=== PATIENT | female | born 1955 | race Caucasian/White ===

== ENCOUNTER 2023-03-06 11:12 | Emergency (ER) | payer MEDICARE, MEDICAID ==
[~2023-03-06] VITALS: Ht 170.2 cm; Wt 87.7 kg
[~2023-03-06 11:12] MED LIST: LISI1TAB51 PO
[2023-03-06 11:17] VITALS: TEMP 99.1
--- NOTE | 2023-03-06 12:30 | NUR ---
PT IN ROOM 9, ON MONITOR IN NAD.
[2023-03-06 12:50] VITALS: BP 149/76; PULSE 73; RESP 16; O2SAT 96
== END 2023-03-06 13:00 | disposition home or self-care (01) ==
LOC: ER 11:12
DX: I10 Essential (primary) hypertension (principal); E11.9 Type 2 diabetes mellitus without complications; Z79.899 Other long term (current) drug therapy
CPT/HCPCS: 93005; 99283

== ENCOUNTER 2024-03-12 09:29 | Outpatient (CLI) | payer MEDICARE, MEDICAID | END 2024-03-12 23:59 | disposition home or self-care (01) | LOC: RAD 09:29 | PROVIDERS: ATTEND Family Medicine | DX: I31.39 Other pericardial effusion (noninflammatory) (principal); K80.20 Calculus of gallbladder without cholecystitis without obstruction; R91.8 Other nonspecific abnormal finding of lung field | CPT/HCPCS: 71250 ==

== ENCOUNTER 2024-11-29 09:13 | Inpatient (IN) | payer MEDICARE, MEDICAID ==
[~2024-11-29] VITALS: Ht 167.6 cm; Wt 81.0 kg
--- NOTE | 2024-11-29 09:22 | ELECTROCARDIOGRAPH REPORT ---
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 Steven August Measurements Intervals Leighton Rate: 89 P: 52 MO: 144 QRS: -1 QRSD: 84 T: 32 QT: 357 QTc: 435 Interpretive Statements Sinus rhythm Low voltage, precordial leads Consider anterior infarct Electronically Signed On 12-01-2024 19:15:[address] Steven August Please click the below link to view image of tracing.
[2024-11-29 09:42] LABS: MEAN PLATELET VOLUME 7.7 FL (7.4-10.4); RED CELL DISTRIBUTION WIDTH 12.7 % (11.5-14.5)
--- NOTE | 2024-11-29 09:46 | Physician Documentation ---
History of Present Illness ~ Chief Complaint: Chest Pain Stated Complaint: CP Time Seen by MD: 11:21 Primary Medical Doctor: None HPI 69 year old female h/o htn, gerd p/w chest pain. She was feeding her who is recovering from shoulder surgery developed sudden onset chest pressure, sternal and jaw pain. No sob. Progressively worsened for 20 minutes then began improving. Now chest pain free. No history of similar no prior stress testing. Currently denies any shortness of breath nausea vomiting chest pain or back pain or radiating arm Day of Onset: Nov 29, 2024 Tetanus within 5 Years?: No Allergies: Coded Allergies: midazolam HCl (Verified Adverse Reaction, Intermediate, ebstein fong flare up, 11/29/24) Uncoded Allergies: NUTS (Adverse Reaction, Severe, cpr, 04/09/10) Active Prescriptions See Medication Reconciliation Form. Medication Reconciliation Scheduled Lisinopril (Lisinopril), 1 TAB PO DAILY, (Reported) Discontinued Medications Lisinopril/Hydrochlorothiazide (Lisinopril-Hctz 20-12.5 mg Tab), 1 TABLET PO DAILY, (Reported) Discontinued Reason: patient no longer taking Review of Systems All Other Systems at this time: Reviewed and Negative Constitutional: Denies: fever Respiratory: Denies: cough, orthopnea, shortness of breath Cardiovascular: Reports: chest pain; Denies: diaphoresis, lightheadedness, syncope, edema Gastrointestinal: Denies: abdominal pain Physical Exam Vital Signs: Temperature: 97.3, Source: Oral, Heart Rate: 89, Respiratory Rate: 18, BP: 179/98, Pulse Oximetry: 97, Weight: 81.000 Physical Exam well appearing no distress awake alert oriented lungs ctab cardiac no murmur abd soft nt lower ext no edema. skin pwd Progress Results/Orders Reviewed/noted all lab results: Yes Results/Orders Orders - TYLER TOMLIN MD Chest,Single View (11/29/24 09:20) Monitor (11/29/24 09:20) Saline Lock (11/29/24 09:20) Hs Troponin I W Calculations (11/29/24 12:20) Page Hospitalist (11/29/24 12:57) Fill Out Med Reconciliation (11/29/24 12:57) Completed Orders - TYLER TOMLIN MD Chest,Single View (11/29/24 09:20) Cbc/Diff (11/29/24 09:20) BMP (11/29/24 09:20) PBNP (11/29/24 09:20) Electrocardiogram (11/29/24 09:20) Hs Troponin I W Calculations (11/29/24 09:20) Hs Troponin I W Calculations (11/29/24 11:20) Aspirin 81mg Chew Tablet (Aspirin 81mg C (11/29/24 13:10) Medications Received in ER Medications (Trade) Dose Ordered Sig/Magaly Route PRN Reason Start Time Stop Time Status Last Admin Dose Admin (aspirin 81MG chew tablet) 324 mg ONCE ONCE PO 11/29/24 13:10 11/29/24 13:11 DC 11/29/24 13:21 324 MG Vital Signs 11/29/24 11/29/24 11/29/24 09:21 11:26 13:23 Temp 97.3 Pulse 89 75 98 Resp 18 18 18 B/P (MAP) 179/98 149/70 (96) 173/88 (116) Pulse Ox 97 99 Laboratory Tests Test 11/29/24 09:21 11/29/24 11:29 White Blood Count 9.9 Red Blood Count 4.57 Hemoglobin 13.3 Hematocrit 39.0 Mean Corpuscular Volume 85.4 Mean Corpuscular Hemoglobin 29.0 Mean Corpuscular Hemoglobin Concent 34.0 Red Cell Distribution Width 12.7 Platelet Count 378 Mean Platelet Volume 7.7 Neutrophils (%) (Auto) 66.7 Lymphocytes (%) (Auto) 24.4 Monocytes (%) (Auto) 5.3 Eosinophils (%) (Auto) 2.5 Basophils (%) (Auto) 1.1 H Neutrophils # (Auto) 6.6 Lymphocytes # (Auto) 2.4 Monocytes # (Auto) 0.5 Eosinophils # (Auto) 0.2 Basophils # (Auto) 0.1 CBC Comment Sodium Level 140 Potassium Level 3.8 Chloride Level 104 Carbon Dioxide Level 22.1 L Anion Gap 14 Blood Urea Nitrogen 13 Creatinine 0.57 Estimated GFR/1.73 m2 > 90 BUN/Creatinine Ratio 22.8 H Glucose Level 121 H Calcium Level 9.2 Troponin I High Sensitivity 5 7 Pro-B-Type Natriuretic Peptide 45 Albumin 4.0 Chemistry Comments Troponin I High Sens Percent Delta 40 Troponin I Hi Sens Absolute Change 2 EKG/XRAY/CT/US/VASC/MRI EKG : Additional Comment EKG independently interpreted by myself time 920 indication chest pain NSR rate 89 normal axis normal intervals no st elevation or depression Heart Score: Heart Score Response (Comments) Value History Moderate Suspicious 1 EKG Normal 0 Age >65 2 Risk Factors 1 or 2 risk factors 1 Troponin Normal limit 0 Total 4 Medical Decision Making Additional Comment ACS, pneumothorax, pneumonia, PE Departure Disposition: ADMITTED INPATIENT Admitted to Inpatient Unit: to hospitalist Impression: Primary Impression: Acute chest pain Referrals: NO PRIMARY CARE PROVIDER (PCP) Signature Scribe Signature: na Attestation: ROBERT Castillo NP Nov 29, 2024 09:46 TYLER TOMLIN MD Nov 29, 2024 12:42
[2024-11-29 10:00] LABS: CREATININE 0.57 MG/DL (0.40-0.90); PRO BRAIN NATRIURETIC PEPTIDE 45 PG/ML (0-125); TOTAL CARBON DIOXIDE 22.1 MMOL/L (24-32); eCRCL 90 ML/MIN; eGFR > 90 ML/MIN
--- NOTE | 2024-11-29 10:01 | RADIOLOGY REPORT ---
EXAM: DI CHEST,SINGLE VIEW HISTORY: CP COMPARISON: None TECHNIQUE: PA upright view of the chest was performed. FINDINGS: No pneumothorax, consolidative infiltrates, or pulmonary edema. There is mild central peribronchial t hickening. The heart is not enlarged. There is a calcific intramedullary lesion of the right proximal humerus. There is calcification of the right rotator cuff. IMPRESSION: 1. Mild reactive airways disease. 2. The lungs are otherwise clear. 3. Calcific intramedullary lesion of the right proximal humerus likely representing enchondroma.
[2024-11-29] MEDS ORDERED: LISI20TA28 PO (11:31)
[2024-11-29] MEDS ORDERED: potassium Cl 40MEQ/1/2NS 520ml 520 ML IV PRN (13:30)
[2024-11-29] MEDS ORDERED: magnesium sulf-water 4G/100mL 100 ML IV PRN (13:30)
[2024-11-29] MEDS ORDERED: ondansetron/PF 4mg/2ml inj IV PRN (13:30)
[2024-11-29] MEDS ORDERED: PERFLUTREN PROTEIN-A MICROSPHR (Optison) 0.22 MG/ML 3ML VIAL IV ONE (13:30)
[2024-11-29] MEDS ORDERED: magnesium sulf-water 2g/50mL 50 ML IV PRN (13:30)
[2024-11-29] MEDS ORDERED: potassium Cl 20 mEq SR tablet PO PRN ×2 (13:30)
[2024-11-29] MEDS ORDERED: magnesium hydroxide 30ml (MOM) UD suspension PO PRN (13:30)
[2024-11-29] MEDS ORDERED: mag hydrox/Alum hydrox/simeth 30ml oral suspension PO PRN (13:30)
[2024-11-29 16:05] VITALS: BP 163/73; PULSE 79; RESP 16; TEMP 98.7; O2SAT 98
[2024-11-29 18:00] VITALS: BP 148/76; PULSE 75; RESP 16; TEMP 98.8; O2SAT 97
[2024-11-29] MEDS ORDERED: hydrALAZINE 20mg/ml inj. IV PRN (19:10)
--- NOTE | 2024-11-29 19:17 | HISTORY AND PHYSICAL ---
History & Physical Providers to CC ~ History of Present Illness Reason for Admit\Complaint: Chest pain eval for NC History of Present Illness This is a 69-year-old female who developed chest pain while visiting her at [facility] rehab today she does help the system in feeding since he had bilateral shoulder surgery recently. The patient noticed that she experiences sub sternal chest tightness that was constant and persisted until she arrived at the ED she denies any radiation, diaphoresis, nausea. The patient is under a lot of stress end-stage a [facility] for 12 hours a day watch make sure he is getting a the care that he needs and then she takes care of chickens and ducks as well. The patient is in a good mood Allergies: Coded Allergies: midazolam HCl (Verified Adverse Reaction, Intermediate, ebstein fong flare up, 11/29/24) Uncoded Allergies: NUTS (Adverse Reaction, Severe, cpr, 04/09/10) Home Medications Home Medications Active Reported Lisinopril 20 Mg Tablet 1 Tab PO DAILY Past Medical History Past Medical History Hypertension [facility] chronic which she develops fatigue and muscle aches when stressed Past Surgical History Surgical History Comment Bladder sling ORIF of the right wrist Removal of ovarian cyst Hysterectomy Jaw surgery for malalignment Family History Family History: Unobtainable family history due to adoption Past Social History Social History Comment Does not smoke cigarettes, rare alcohol intake, denies any illicit drug use. Full code status ROS ROS Except for positives in the HPI the rest of the 14 point review systems is negative Exam Vitals: Vital Signs Date Time Temp Pulse Resp B/P (MAP) Pulse Ox O2 Delivery O2 Flow Rate FiO2 11/29/24 18:30 79 11/29/24 16:05 98.7 16 163/73 (103) 98 Room Air General: Gen. No acute distress alert and oriented 4 Lungs clear to ascultation bilaterally, no wheezes rales or rhonchi appreciated Heart normal sinus rhythm no murmurs rubs or clicks noted Abdomen soft nontender bowel sounds are normoactive Lower extremities no clubbing cyanosis, nor edema appreciated bilaterally Diagnostic Data Last Recorded Lab Results: 11/29/2492011/29/24 09 Counseling Services Smoking & Tobacco Cessation: N/A Advance Care Planning Advanced Care plannin - 30 Minutes Problems: (1) Acute chest pain Status: Acute Additional Plan # chest pain eval for NC With a history of hypertension EKG no ST segment elevation depression Serial troponins are negative Echocardiogram Lexiscan stress test # hypertension Continue lisinopril PRN hydralazine # DVT prophylaxis SCDs SQ Lovenox I spent a total of 17 minutes on reviewing various resuscitative measures/ ACP with the patient at the time of admission. The patient has decided on a full code status Date of Service: Nov 29, 2024 Billing Provider: TEETEE WARD DO Common Visit Codes: 70285-XCCDTKT INP/OBS CARE (HIGH) Secondary Visit Codes: 13334-UCAJNRTF CARE PLAN 30 MINUTES TEETEE WARD DO Nov 29, 2024 19:17
[2024-11-29] MEDS: K and/or MAG REPLACEMENT MC SCH (20:00)
[2024-11-29] MEDS: enoxaparin 40mg/0.4ml syringe SQ SCH (20:05)
[2024-11-29] MEDS: docusate sod 100mg capsule PO SCH (20:05)
[2024-11-29 22:00] VITALS: BP 130/62; PULSE 63; RESP 16; TEMP 97.8; O2SAT 98
[2024-11-30] VITALS (9 sets, daily range): BP systolic 118–138; BP diastolic 1–72; PULSE 66–106; RESP 17–18; TEMP 97.7–98; O2SAT 90–99
[2024-11-30 04:53] LABS: MEAN PLATELET VOLUME 7.5 FL (7.4-10.4); RED CELL DISTRIBUTION WIDTH 12.6 % (11.5-14.5)
[2024-11-30 05:19] LABS: CHOL/HDL RATIO 2.8 (0.00-4.99); CREATININE 0.46 MG/DL (0.40-0.90); LDL CHOLESTEROL 101 MG/DL (50-100); TOTAL CARBON DIOXIDE 24.6 MMOL/L (24-32); eCRCL 111 ML/MIN; eGFR > 90 ML/MIN
[2024-11-30] MEDS ORDERED: metoprolol tartrate 1mg/ml inj IV PRN (09:55)
[2024-11-30] MEDS ORDERED: aminophylline 250mg/10ml inj. IV PRN (09:55)
[2024-11-30] MEDS: regadenoson 0.4mg/5ml syringe IV PRN (12:16)
--- NOTE | 2024-11-30 15:32 | RADIOLOGY REPORT ---
Procedure: NM NM ASHLEY SCAN Exam Date: 11/30/2024 10:47 AM Reason for study/Clinical History: Chest pain Comparison Study: None Myocardial Perfusion Study with SPECT Technique: The patient received an intravenous injection of 8.6 mCi of technetium-99m sestamibi whi le at rest. After a short delay, SPECT tomographic images of the heart were obtained. The patient cabrera umana went to the stress lab where they received an intravenous Lexiscan utilizing standard protocol. 31.8 mCi of technetium-99m sestamibi was injected intravenously immediately after the start of the infusion. Gated SPECT tomographic images of the heart were acquired and processed. Findings: Rotating planar images show no significant attenuation artifact. The left ventricular size is within normal limits. Stress tomographic images demonstrate normal perfusion. Resting tomographic images demonstrate a similar pattern. Gated portion of the study shows normal wall motion and myocardial thickening. The left ventricular ejection fraction is 64%. (normal greater than 50%) Impression: Normal left ventricular size, wall motion, and function, without evidence of infarction or of myocard ium at ischemic risk. The left ventricular ejection fraction is 64%.
[2024-11-30] MEDS ORDERED: ATOR20TA66 PO (16:43)
--- NOTE | 2024-11-30 18:14 | CARDIOLOGY REPORT ---
APPROVED REPORT EXAM: Comprehensive 2D, Doppler, and color-flow Echocardiogram. Patient Location: 4024 B Heart Rate: 70's bpm Rhythm: SINUS Indications HYPERTENSION Wrapping Clerk: NONE Previous echo: NONE 2D Dimensions RVDd 3.0 cm IVSd 1.1 (0.7-1.1cm) LVDd 4.2 cm PWd 1.0 (0.7-1.1cm) IVSs 1.2 (0.8-1.2cm) LVDs 1.9 (2.5-4.0cm) PWs 1.8 (0.8-1.2cm) LVOT Diameter 1.88 (1.8-2.4cm) LVEF(%) 70.3 (>50%) FS (%) 38.5 % SV 25.3 ml CO 1.7 L/min M-Mode Dimensions Left Atrium(MM) 4.00 (2.5-4.0cm) Aortic Root 2.64 (2.2-3.7cm) Aortic Cusp Exc 1.61 (1.5-2.0cm) Aortic Valve AoV Peak Perez. 165.9 cm/s AoV VTI 29.5 cm AO Peak GR. 11.0 mmHg AO Mean GR. 6 mmHg LVOT VTI 21.37 cm LVOT Peak Perez. 109.7 cm/s BETTY(VTI)/BSA 2.15 cm2/m2 BETTY (VTI) 2.15 cm2 Mitral Valve MV E Velocity 91.5 cm/s MV Peak Gr. 4 mmHg MV DECEL TIME 300 ms MV A Velocity 105.1 cm/s MV PHT 72 ms E/A Ratio 0.9 MVA (PHT) 3.06 cm2 MV IWtw345.3 cm/s Tricuspid Valve TR P. Velocity 252 cm/s RAP ESTIMATE 10 mmHg TR Peak Gr. 25 mmHg RVSP 35 mmHg LEFT VENTRICLE Small LV size and wall thickness. Overall systolic function is normal. LVEF is 75%. RIGHT VENTRICLE RV is normal size and function. Elevated right heart pressures with an RVSP of 35 mmHG. Thick RV free wall ATRIA The left atrium size is normal. AORTIC VALVE Trileaflet AV appears mildly sclerotic without stenosis. No insufficiency. MITRAL VALVE Mild MV annular calcification without stenosis. Trace regurgitation. TRICUSPID VALVE TV appears structurally normal with trace regurgitation. PULMONIC VALVE Normal PV without stenosis, no insufficiency. GREAT VESSELS The aortic root is normal in size. PERICARDIUM Normal pericardium. No effusion. Prominent anterior epicardial fat pad is present. Other Information Study Quality: Adequate Conclusion Small LV size and wall thickness. Overall systolic function is normal. LVEF is 75%. RV is normal size and function. Elevated right heart pressures with an RVSP of 35 mmHG. Thick RV free wall The left atrium size is normal. Trileaflet AV appears mildly sclerotic without stenosis. No insufficiency. Mild MV annular calcification without stenosis. Trace regurgitation. TV appears structurally normal with trace regurgitation. Normal pericardium. No effusion. Prominent anterior epicardial fat pad is present.
--- NOTE | 2024-11-30 20:04 | DISCHARGE SUMMARY ---
Discharge Summary Providers to CC ~ Discharge Summary Admission Diagnosis: Chest pain eval for CO Hospital Course DATE OF ADMISSION: 11/29/2024 DATE OF DISCHARGE: 11/30/2024 Discharge Diagnosis\Comment: Chest pain secondary to anxiety mi ruled out, hypertension, hyperlipidemia Operations\Procedures: None Consultants: None Complications: None Condition on DC: Stable New Medications: Atorvastatin Calcium (Atorvastatin Calcium) 20 Mg Tablet 20 MG PO DAILY, #30 TAB Continued Medications: Lisinopril (Lisinopril) 20 Mg Tablet 1 TAB PO DAILY Discharge Summary: I admitted the patient with the following HPI:This is a 69-year-old female who developed chest pain while visiting her at [facility] rehab today she does help the system in feeding since he had bilateral shoulder surgery recently. The patient noticed that she experiences sub sternal chest tightness that was constant and persisted until she arrived at the ED she denies any radiation, diaphoresis, nausea. The patient is under a lot of stress end-stage a [facility] for 12 hours a day watch make sure he is getting a the care that he needs and then she takes care of chickens and ducks as well. The patient is in a good mood. Lexiscan stress test was negative for any reversible ischemia or ischemia, and an echocardiogram demonstrated an LVEF of 75% there were no significant findings. The patient has a history of hypertension in his well-controlled with lisinopril. And the patient has a fasting lipid panel which demonstrated triglycerides of 86 total cholesterol of 188 LDL of 101 and HDL 66 I did start the patient has a 20 mg of atorvastatin and did recommend the patient is recheck labs including lipid panel and a CMP in three months and recommended taking Co Q10. Gen. No acute distress alert and oriented 4 Lungs clear to ascultation bilaterally, no wheezes rales or rhonchi appreciated Heart normal sinus rhythm no murmurs rubs or clicks noted Abdomen soft nontender bowel sounds are normoactive Lower extremities no clubbing cyanosis, nor edema appreciated bilaterally The patient felt ready to be discharged and was medically cleared to be discharged on 11/30/2024 The patient was seen and evaluated on day of discharge. Time spent on discharge 35 minutes The patient recovered sooner than to be expected with chest pain eval for CO. *Problems/Diagnosis: (1) Acute chest pain Status: Acute Total Time Spent on D/C: > 30 Minutes Date of Service: Nov 30, 2024 Billing Provider: TEETEE WARD DO Common Visit Codes: 71743-QVK/OBS DISCH DAY >30min TEETEE WARD DO Nov 30, 2024 20:04
== END 2024-11-30 17:26 | disposition home or self-care (01) | DRG 880 ==
LOC: ER 09:14 → ED HOLD 13:30 → ORTHO 4S 16:05
PROVIDERS: ADMIT Family Medicine; ATTEND Family Medicine
PROC: 4A02XM4 Measurement of Cardiac Total Activity, External Approach (ICD-10-PCS; principal; 2024-11-30)
PROC: 3E033HZ Introduction of Radioactive Substance into Peripheral Vein, Percutaneous Approach (ICD-10-PCS; 2024-11-30)
DX: F41.9 Anxiety disorder, unspecified (principal); I10 Essential (primary) hypertension; K21.9 Gastro-esophageal reflux disease without esophagitis; Z90.710 Acquired absence of both cervix and uterus; Z88.8 Allergy status to other drugs, medicaments and biological substances
CPT/HCPCS: 36415; 71045; 78452; 80048; 80053; 80061; 83735; 83880; 84484; 85025; 87081; 93005; 93017; 93306; 99285; A9500; G0378; J1650; J2785